=== PATIENT | female | born 1990 | race Caucasian/White ===

== ENCOUNTER 2017-12-12 15:40 | Emergency (ER) | payer BC, SELFPAY ==
[2017-12-12] MEDS ORDERED: Lidocaine 1% w/Epinephrine 1:100K 30 ML VIAL ONE (15:47)
== END 2017-12-12 16:17 | disposition home or self-care (01) ==
LOC: BURERS 15:40
DX: S51.812A Laceration without foreign body of left forearm, initial encounter (principal); W26.0XXA Contact with knife, initial encounter
CPT/HCPCS: 12001; J2001